=== PATIENT | female | born 1950 | race Caucasian/White ===

== ENCOUNTER 2020-12-14 14:50 | Outpatient (CLI) | payer MEDICARE, MEDICAID | END 2020-12-14 14:51 | disposition home or self-care (01) | LOC: CSHMRI 14:50 | PROVIDERS: ATTEND Emergency Medicine | DX: M75.102 Unspecified rotator cuff tear or rupture of left shoulder, not specified as traumatic (principal); M54.16 Radiculopathy, lumbar region; Z98.890 Other specified postprocedural states; M62.512 Muscle wasting and atrophy, not elsewhere classified, left shoulder; M19.012 Primary osteoarthritis, left shoulder; M71.812 Other specified bursopathies, left shoulder | CPT/HCPCS: 72148 ==

== ENCOUNTER 2021-12-08 11:56 | Emergency (ER) | payer MEDICARE, MEDICAID ==
[2021-12-08] MEDS ORDERED: Ketorolac Tromethamine 30 MG/ML VIAL ONE (12:34)
== END 2021-12-08 13:51 | disposition home or self-care (01) ==
LOC: CSHERS 11:56
DX: M25.512 Pain in left shoulder (principal); R07.89 Other chest pain; M25.522 Pain in left elbow; M25.532 Pain in left wrist; E11.9 Type 2 diabetes mellitus without complications; W19.XXXA Unspecified fall, initial encounter
CPT/HCPCS: 71045; 96372; J1885

== ENCOUNTER 2022-06-30 13:56 | Outpatient (CLI) | payer OTHER, MEDICAID ==
[2022-06-30 14:57] LABS: Hemoglobin 11.2 g/dL (12.0-15.5); Mean Corpuscular HGB CONC 31.5 g/dL (32.0-36.0); Mean Corpuscular Volume 82.4 fl (81.6-98.3); Mean Platelet Volume 9.6 fl (7.4-10.4); Platelet Count 339 10x3/uL (150-450); RBC Distribution Width 14.7 % (11.5-14.5); Red Blood Cell (RBC) Count 4.31 10x6/uL (3.90-5.03); White Blood Cell (WBC) Count 6.4 10x3/uL (3.5-10.5)
[2022-06-30 15:08] LABS: Anion Gap 13 mmol/L (10-20); BUN (Urea Nitrogen) 12 mg/dL (9.8-20.1); Calc. Creatinine Clearance 0 mL/min (70-130); Calcium 9.6 mg/dL (7.8-10.44); Carbon Dioxide 27 mmol/L (23-31); Chloride 100 mmol/L (98-107); Estimated GFR 72; Glucose 249 mg/dL (83-110); Potassium 4.4 mmol/L (3.5-5.1); Sodium 136 mmol/L (136-145)
== END 2022-06-30 13:57 | disposition home or self-care (01) ==
LOC: CSHLAB 13:56
PROVIDERS: ATTEND Orthopaedic Surgery
DX: Z01.818 Encounter for other preprocedural examination (principal)
CPT/HCPCS: 80048; 85027; 93005; 93010

== ENCOUNTER 2022-07-04 08:58 | Inpatient (IN) | payer OTHER, MEDICAID ==
[2022-07-04] MEDS ORDERED: Triamcinolone 40 MG/ML VIAL ONE (09:30)
[2022-07-04] MEDS ORDERED: EPINEPHrine 1 MG/ML AMP ONE (09:30)
[2022-07-04] MEDS ORDERED: Ketorolac Tromethamine 30 MG/ML VIAL ONE ×2 (09:30→11:10)
[2022-07-04] MEDS ORDERED: Bupivacaine PF 0.5% 30 ML VIAL ONE ×2 (09:31→14:02)
[2022-07-04] MEDS ORDERED: Insulin Regular 300 UNITS/3 ML VIAL ONE (11:03)
[2022-07-04] MEDS ORDERED: Lidocaine 1% PF 5 ML VIAL ONE (11:10)
[2022-07-04] MEDS ORDERED: Ondansetron PF 4 MG/2 ML Vial ONE (11:10)
[2022-07-04] MEDS ORDERED: Midazolam HCl 2 mg/2 ml Vial ONE (11:10)
[2022-07-04] MEDS ORDERED: Dexamethasone 4 mg/ml Vial ONE ×2 (11:10→11:37)
[2022-07-04] MEDS ORDERED: Fentanyl 100 MCG/2 ML VIAL ONE ×2 (11:10→14:28)
[2022-07-04] MEDS ORDERED: PROPOFOL 20 ML ONE (11:10)
[2022-07-04] MEDS ORDERED: Glycopyrrolate 0.2 MG/ML 5 ML SYRINGE ONE (11:12)
[2022-07-04] MEDS ORDERED: CEFAZOLIN 2 GM VIAL ONE (11:17)
[2022-07-04] MEDS ORDERED: Dextrose 50% Abboject 50 ML SYRINGE SLOW IVP PRN (15:11)
[2022-07-04] MEDS ORDERED: Acetaminophen 325 MG TAB PO PRN (15:11)
[2022-07-04] MEDS ORDERED: HumaLOG 300 UNITS/3 ML VIAL SC PRN (15:11)
[2022-07-04] MEDS ORDERED: Dextrose 5% in Water 1,000 ML IV PRN (15:11)
[2022-07-04] MEDS ORDERED: hydrALAZINE 20 MG/ML VIAL SLOW IVP PRN (15:11)
[2022-07-04] MEDS: HumaLOG 300 UNITS/3 ML VIAL SC PRN (16:59)
[2022-07-04] MEDS: Gabapentin 300 MG CAP PO SCH (21:59)
[2022-07-04] MEDS: Zolpidem Tartrate 5 MG TAB PO SCH (22:01)
[2022-07-04] MEDS: Montelukast Sodium 10 mg Tablet PO SCH (22:01)
[2022-07-04] MEDS ORDERED: Morphine 2 MG/ML VIAL SLOW IVP PRN (23:08)
[2022-07-04] MEDS: HYDROcodone/Acetaminophen 10/325 mg Tablet PO PRN (23:19)
[2022-07-05 05:00] LABS: #Monocytes 0.8 10x3/uL (0.0-1.1); #Neutrophils 12.6 10x3/uL (1.5-8.4); %Basophils 0.1 % (0.0-2.0); %Lymphocytes 6.8 % (18.0-47.0); %Monocytes 5.7 % (0.0-10.0); %Neutrophils 86.9 % (40.0-75.0); Hemoglobin 8.8 g/dL (12.0-15.5); Mean Corpuscular HGB CONC 32.6 g/dL (32.0-36.0); Mean Corpuscular Hemoglobin 26.2 pg (27.0-33.0); Mean Corpuscular Volume 80.4 fl (81.6-98.3); Mean Platelet Volume 10.1 fl (7.4-10.4); Platelet Count 310 10x3/uL (150-450); RBC Distribution Width 14.7 % (11.5-14.5); Red Blood Cell (RBC) Count 3.36 10x6/uL (3.90-5.03); White Blood Cell (WBC) Count 14.5 10x3/uL (3.5-10.5)
[2022-07-05 05:17] LABS: Anion Gap 10 mmol/L (10-20); BUN (Urea Nitrogen) 21 mg/dL (9.8-20.1); Calc. Creatinine Clearance 68 mL/min (70-130); Calcium 9.3 mg/dL (7.8-10.44); Carbon Dioxide 27 mmol/L (23-31); Chloride 98 mmol/L (98-107); Estimated GFR 61; Glucose 386 mg/dL (83-110); Potassium 4.9 mmol/L (3.5-5.1); Sodium 130 mmol/L (136-145)
[2022-07-05] MEDS ORDERED: Lantus 1000 UNITS/10 ML VIAL SC SCH ×3 (09:00→21:00)
[2022-07-05] MEDS ORDERED: FLU VACC QS2022-23(65YR UP)/PF 240 MCG/0.7 ML SYRINGE IM ONE (09:00)
[2022-07-05] MEDS: Nebivolol HCl 5 MG TAB PO SCH (09:05)
[2022-07-05] MEDS: DULoxetine 30 MG CAP PO SCH (09:05)
[2022-07-05] MEDS: Losartan 25 MG TAB PO SCH ×2 (09:06→11:50)
[2022-07-05] MEDS: HYDROcodone/Acetaminophen 10/325 mg Tablet PO PRN (09:27)
[2022-07-05] MEDS ORDERED: CEFAZOLIN 1 GM VIAL ONE (15:32)
[2022-07-05] MEDS ORDERED: Ketamine 50 MG/ML (10ML VIAL) ONE (15:32)
[2022-07-05] MEDS ORDERED: Albuterol Sulfate HFA (OR ONLY) ONE (15:33)
[2022-07-05] MEDS ORDERED: PROPOFOL 0 ML ONE (15:36)
[2022-07-05] MEDS ORDERED: Lidocaine 2% PF 5 ML VIAL ONE (15:36)
[2022-07-05] MEDS ORDERED: Fentanyl 100 MCG/2 ML VIAL ONE ×2 (15:36→17:59)
[2022-07-05] MEDS ORDERED: Rocuronium Bromide 10 MG/ML (10ML VIAL) ONE (15:36)
[2022-07-05] MEDS ORDERED: Glycopyrrolate 0.2 MG/ML 5 ML SYRINGE ONE (15:47)
[2022-07-05] MEDS ORDERED: Bupivacaine PF 0.5% 30 ML VIAL ONE (16:08)
[2022-07-05] MEDS ORDERED: Tranexamic Acid 1,000 MG/10 ML VIAL ONE (16:08)
[2022-07-05] MEDS ORDERED: SUGAMMADEX SODIUM 200 MG/2 ML VIAL ONE (16:08)
[2022-07-05] MEDS ORDERED: Dexamethasone 4 mg/ml Vial ONE (16:31)
[2022-07-05] MEDS ORDERED: ePHEDrine Sulfate 50 MG/10 ML VIAL ONE (16:35)
[2022-07-05] MEDS ORDERED: HYDROcodone/Acetaminophen 10/325 mg Tablet PO PRN (17:34)
[2022-07-05] MEDS ORDERED: TETANUS, DIPHTHERIA TOX,ADULT (TDVAX) 0.5 ML VIAL IM ONE (17:34)
[2022-07-05] MEDS ORDERED: Ondansetron PF 4 MG/2 ML Vial SLOW IVP PRN (17:34)
[2022-07-05] MEDS: Montelukast Sodium 10 mg Tablet PO SCH (21:04)
[2022-07-05] MEDS: Zolpidem Tartrate 5 MG TAB PO SCH (21:04)
[2022-07-05] MEDS: Morphine 4 MG/ML VIAL SLOW IVP PRN (21:06)
[2022-07-05] MEDS: Gabapentin 300 MG CAP PO SCH (21:22)
[2022-07-05] MEDS: Aspirin 81 mg Enteric Coated Tablet PO SCH (21:22)
[2022-07-05] MEDS: CEFAZOLIN 2 GM in Sodium Chloride 0.9% 100 ML IVPB SCH (21:43)
[2022-07-05 21:56] LABS: #Monocytes 0.8 10x3/uL (0.0-1.1); #Neutrophils 15.4 10x3/uL (1.5-8.4); %Basophils 0.1 % (0.0-2.0); %Lymphocytes 4.4 % (18.0-47.0); %Monocytes 4.9 % (0.0-10.0); %Neutrophils 90.1 % (40.0-75.0); Hemoglobin 9.2 g/dL (12.0-15.5); Mean Corpuscular HGB CONC 33.2 g/dL (32.0-36.0); Mean Corpuscular Hemoglobin 27.3 pg (27.0-33.0); Mean Corpuscular Volume 82.2 fl (81.6-98.3); Platelet Count 268 10x3/uL (150-450); RBC Distribution Width 14.9 % (11.5-14.5); Red Blood Cell (RBC) Count 3.37 10x6/uL (3.90-5.03); White Blood Cell (WBC) Count 17.1 10x3/uL (3.5-10.5)
[2022-07-05 22:44] LABS: Large Platelets SLIGHT; Platelet Clumps SLIGHT; Platelet Morphology Comment Appears Adequate; RBC Morphology Normal
[2022-07-06] MEDS: Ketorolac Tromethamine 30 MG/ML VIAL IVP SCH ×5 (03:19→23:48)
[2022-07-06] MEDS: HYDROcodone/Acetaminophen 10/325 mg Tablet PO PRN ×2 (03:20→16:30)
[2022-07-06] MEDS: CEFAZOLIN 2 GM in Sodium Chloride 0.9% 100 ML IVPB SCH (05:58)
[2022-07-06] MEDS: Morphine 4 MG/ML VIAL SLOW IVP PRN (05:58)
[2022-07-06 06:19] LABS: #Monocytes 1.1 10x3/uL (0.0-1.1); #Neutrophils 10.4 10x3/uL (1.5-8.4); %Basophils 0.2 % (0.0-2.0); %Monocytes 8.6 % (0.0-10.0); %Neutrophils 78.6 % (40.0-75.0); Hemoglobin 8.5 g/dL (12.0-15.5); Mean Corpuscular HGB CONC 32.9 g/dL (32.0-36.0); Mean Corpuscular Hemoglobin 27.2 pg (27.0-33.0); Mean Corpuscular Volume 82.7 fl (81.6-98.3); Mean Platelet Volume 10.3 fl (7.4-10.4); Platelet Count 287 10x3/uL (150-450); RBC Distribution Width 15.3 % (11.5-14.5); Red Blood Cell (RBC) Count 3.12 10x6/uL (3.90-5.03); White Blood Cell (WBC) Count 13.2 10x3/uL (3.5-10.5)
[2022-07-06] MEDS: HumaLOG 300 UNITS/3 ML VIAL SC PRN (06:30)
[2022-07-06 06:41] LABS: Anion Gap 16 mmol/L (10-20); BUN (Urea Nitrogen) 28 mg/dL (9.8-20.1); Calc. Creatinine Clearance 55 mL/min (70-130); Calcium 8.7 mg/dL (7.8-10.44); Carbon Dioxide 23 mmol/L (23-31); Chloride 102 mmol/L (98-107); Estimated GFR 48; Glucose 352 mg/dL (83-110); Potassium 5.4 mmol/L (3.5-5.1); Sodium 136 mmol/L (136-145)
[2022-07-06] MEDS: Nebivolol HCl 5 MG TAB PO SCH (09:44)
[2022-07-06] MEDS: Lactated Ringer's 1,000 ML IV SCH (09:45)
[2022-07-06] MEDS: DULoxetine 30 MG CAP PO SCH (09:45)
[2022-07-06] MEDS: Losartan 25 MG TAB PO SCH (09:45)
[2022-07-06] MEDS: Aspirin 81 mg Enteric Coated Tablet PO SCH ×2 (09:51→20:53)
[2022-07-06] MEDS: Lantus 1000 UNITS/10 ML VIAL SC SCH (10:06)
[2022-07-06] MEDS ORDERED: PATIENT'S HOME MEDICATION PO SCH (12:30)
[2022-07-06] MEDS: PATIENT'S HOME MEDICATION PO SCH (15:19)
[2022-07-06] MEDS ORDERED: HYDROcodone/Acetaminophen 5/325 mg Tablet PO PRN (17:20)
[2022-07-06] MEDS ORDERED: HYDROcodone/Acetaminophen 7.5/325 mg Tablet PO PRN (17:20)
[2022-07-06] MEDS ORDERED: Polyethylene Glycol 3350 17 GM Packet PO PRN (17:31)
[2022-07-06] MEDS: Gabapentin 300 MG CAP PO SCH (20:52)
[2022-07-06] MEDS: Montelukast Sodium 10 mg Tablet PO SCH (20:53)
[2022-07-06] MEDS ORDERED: Ketorolac Tromethamine 30 MG/ML VIAL IVP SCH (21:00)
[2022-07-07] MEDS: Morphine 4 MG/ML VIAL SLOW IVP PRN (02:39)
[2022-07-07] MEDS: Lactated Ringer's 1,000 ML IV SCH (02:43)
[2022-07-07 07:45] LABS: #Eosinphils 0.1 10x3/uL (0.0-0.5); #Monocytes 0.9 10x3/uL (0.0-1.1); #Neutrophils 5.4 10x3/uL (1.5-8.4); %Basophils 0.3 % (0.0-2.0); %Eosinophils 0.8 % (0.0-6.0); %Lymphocytes 27.7 % (18.0-47.0); %Monocytes 10.4 % (0.0-10.0); %Neutrophils 60.1 % (40.0-75.0); Hemoglobin 7.7 g/dL (12.0-15.5); Mean Corpuscular HGB CONC 32.5 g/dL (32.0-36.0); Mean Corpuscular Hemoglobin 27.4 pg (27.0-33.0); Mean Corpuscular Volume 84.3 fl (81.6-98.3); Mean Platelet Volume 9.9 fl (7.4-10.4); Platelet Count 251 10x3/uL (150-450); RBC Distribution Width 16.3 % (11.5-14.5); Red Blood Cell (RBC) Count 2.81 10x6/uL (3.90-5.03)
[2022-07-07 07:47] LABS: Anion Gap 11 mmol/L (10-20); BUN (Urea Nitrogen) 34 mg/dL (9.8-20.1); Calc. Creatinine Clearance 65 mL/min (70-130); Calcium 8.5 mg/dL (7.8-10.44); Carbon Dioxide 26 mmol/L (23-31); Chloride 101 mmol/L (98-107); Estimated GFR 58; Glucose 246 mg/dL (83-110); Potassium 4.4 mmol/L (3.5-5.1); Sodium 134 mmol/L (136-145)
[2022-07-07] MEDS: DULoxetine 30 MG CAP PO SCH (08:53)
[2022-07-07] MEDS: Aspirin 81 mg Enteric Coated Tablet PO SCH ×2 (08:53→21:01)
[2022-07-07] MEDS: Ferrous Sulfate 325 MG TAB PO SCH (08:53)
[2022-07-07] MEDS: Nebivolol HCl 5 MG TAB PO SCH (08:55)
[2022-07-07] MEDS: PATIENT'S HOME MEDICATION PO SCH (08:59)
[2022-07-07] MEDS: Lantus 1000 UNITS/10 ML VIAL SC SCH ×2 (09:13→21:05)
[2022-07-07] MEDS: HumaLOG 300 UNITS/3 ML VIAL SC PRN ×2 (09:14→17:51)
[2022-07-07] MEDS ORDERED: HYDROcodone/Acetaminophen 7.5/325 mg Tablet PO PRN (13:55)
[2022-07-07] MEDS: HYDROcodone/Acetaminophen 10/325 mg Tablet PO PRN (21:01)
[2022-07-07] MEDS: Gabapentin 300 MG CAP PO SCH (21:03)
[2022-07-07] MEDS: Montelukast Sodium 10 mg Tablet PO SCH (21:03)
[2022-07-08] MEDS: HYDROcodone/Acetaminophen 10/325 mg Tablet PO PRN ×5 (01:08→21:22)
[2022-07-08 05:13] LABS: #Eosinphils 0.1 10x3/uL (0.0-0.5); #Neutrophils 5.3 10x3/uL (1.5-8.4); %Basophils 0.4 % (0.0-2.0); %Eosinophils 1.5 % (0.0-6.0); %Neutrophils 55.7 % (40.0-75.0); Hemoglobin 7.9 g/dL (12.0-15.5); Mean Corpuscular HGB CONC 32.2 g/dL (32.0-36.0); Mean Corpuscular Volume 83.6 fl (81.6-98.3); Mean Platelet Volume 9.9 fl (7.4-10.4); Platelet Count 281 10x3/uL (150-450); RBC Distribution Width 16.4 % (11.5-14.5); Red Blood Cell (RBC) Count 2.93 10x6/uL (3.90-5.03); White Blood Cell (WBC) Count 9.6 10x3/uL (3.5-10.5)
[2022-07-08 05:16] LABS: Anion Gap 11 mmol/L (10-20); BUN (Urea Nitrogen) 18 mg/dL (9.8-20.1); Calc. Creatinine Clearance 101 mL/min (70-130); Calcium 8.3 mg/dL (7.8-10.44); Carbon Dioxide 23 mmol/L (23-31); Chloride 103 mmol/L (98-107); Estimated GFR 93; Glucose 166 mg/dL (83-110); Potassium 4.4 mmol/L (3.5-5.1); Sodium 133 mmol/L (136-145)
[2022-07-08] MEDS: HumaLOG 300 UNITS/3 ML VIAL SC PRN (06:25)
[2022-07-08] MEDS: PATIENT'S HOME MEDICATION PO SCH (08:34)
[2022-07-08] MEDS: Aspirin 81 mg Enteric Coated Tablet PO SCH ×2 (08:34→21:21)
[2022-07-08] MEDS: Lantus 1000 UNITS/10 ML VIAL SC SCH ×2 (08:37→21:22)
[2022-07-08] MEDS: Ferrous Sulfate 325 MG TAB PO SCH (08:37)
[2022-07-08] MEDS: DULoxetine 30 MG CAP PO SCH (08:38)
[2022-07-08] MEDS ORDERED: Nebivolol HCl 5 MG TAB PO SCH (12:00)
[2022-07-08] MEDS: Gabapentin 100 MG CAP PO SCH ×2 (12:12→16:32)
[2022-07-08] MEDS: Morphine 4 MG/ML VIAL SLOW IVP PRN (12:17)
[2022-07-08] MEDS: Nebivolol HCl 5 MG TAB PO SCH (16:16)
[2022-07-08] MEDS: Gabapentin 300 MG CAP PO SCH (21:21)
[2022-07-08] MEDS: Montelukast Sodium 10 mg Tablet PO SCH (21:21)
[2022-07-09] MEDS: HYDROcodone/Acetaminophen 10/325 mg Tablet PO PRN ×2 (06:14→20:52)
[2022-07-09 06:52] LABS: #Eosinphils 0.2 10x3/uL (0.0-0.5); #Neutrophils 6.1 10x3/uL (1.5-8.4); %Basophils 0.3 % (0.0-2.0); %Lymphocytes 24.2 % (18.0-47.0); %Monocytes 10.4 % (0.0-10.0); %Neutrophils 62.7 % (40.0-75.0); Hemoglobin 8.4 g/dL (12.0-15.5); Mean Corpuscular HGB CONC 31.8 g/dL (32.0-36.0); Mean Corpuscular Hemoglobin 27.2 pg (27.0-33.0); Mean Corpuscular Volume 85.4 fl (81.6-98.3); Mean Platelet Volume 9.9 fl (7.4-10.4); Platelet Count 323 10x3/uL (150-450); Red Blood Cell (RBC) Count 3.09 10x6/uL (3.90-5.03); White Blood Cell (WBC) Count 9.6 10x3/uL (3.5-10.5)
[2022-07-09 07:02] LABS: Anion Gap 14 mmol/L (10-20); BUN (Urea Nitrogen) 11 mg/dL (9.8-20.1); Calc. Creatinine Clearance 107 mL/min (70-130); Calcium 8.7 mg/dL (7.8-10.44); Carbon Dioxide 25 mmol/L (23-31); Chloride 102 mmol/L (98-107); Estimated GFR 92; Glucose 122 mg/dL (83-110); Potassium 5.3 mmol/L (3.5-5.1); Sodium 136 mmol/L (136-145)
[2022-07-09] MEDS: Lantus 1000 UNITS/10 ML VIAL SC SCH ×2 (11:52→21:05)
[2022-07-09] MEDS: Nebivolol HCl 5 MG TAB PO SCH (11:53)
[2022-07-09] MEDS: Gabapentin 100 MG CAP PO SCH ×2 (11:54→18:14)
[2022-07-09] MEDS: Ferrous Sulfate 325 MG TAB PO SCH (11:54)
[2022-07-09] MEDS: DULoxetine 30 MG CAP PO SCH (11:54)
[2022-07-09] MEDS: Aspirin 81 mg Enteric Coated Tablet PO SCH (11:55)
[2022-07-09] MEDS: PATIENT'S HOME MEDICATION PO SCH (11:56)
[2022-07-09] MEDS ORDERED: Moisturizing Cream (Eucerin) 113 GM JAR TOP PRN (13:43)
[2022-07-09] MEDS ORDERED: Artificial Tear Sol 15 ML BOT EA EYE PRN (13:43)
[2022-07-09] MEDS ORDERED: Benzonatate 100 MG CAP PO PRN (13:43)
[2022-07-09] MEDS ORDERED: Sodium Chloride 0.65% Nasal 44 ML BOT EA NARE PRN (13:43)
[2022-07-09 15:00] LABS: Anion Gap 10 mmol/L (10-20); BUN (Urea Nitrogen) 10 mg/dL (9.8-20.1); Calc. Creatinine Clearance 107 mL/min (70-130); Calcium 8.7 mg/dL (7.8-10.44); Carbon Dioxide 29 mmol/L (23-31); Chloride 100 mmol/L (98-107); Estimated GFR 92; Glucose 122 mg/dL (83-110); Sodium 134 mmol/L (136-145)
[2022-07-09] MEDS: Acetaminophen 325 MG TAB PO SCH ×2 (18:14→20:52)
[2022-07-09] MEDS: Nystatin 500,000 UNITS/5 ML UDCUP SSW SCH ×2 (18:14→20:53)
[2022-07-09] MEDS: Cepastat Lozenges 1 LOZ PO PRN (18:15)
[2022-07-09] MEDS: Gabapentin 300 MG CAP PO SCH (20:53)
[2022-07-09] MEDS: Famotidine 20 MG TAB PO SCH (20:53)
[2022-07-09] MEDS: Montelukast Sodium 10 mg Tablet PO SCH (20:53)
[2022-07-09] MEDS: Enoxaparin Sodium 40 MG/0.4 ML SYRINGE SC SCH (20:54)
[2022-07-10] MEDS: Acetaminophen 325 MG TAB PO SCH ×2 (00:54→06:42)
[2022-07-10] MEDS: Cepastat Lozenges 1 LOZ PO PRN ×2 (03:02→23:10)
[2022-07-10] MEDS: HYDROcodone/Acetaminophen 10/325 mg Tablet PO PRN ×2 (04:44→09:28)
[2022-07-10 06:37] LABS: Anion Gap 12 mmol/L (10-20); BUN (Urea Nitrogen) 9 mg/dL (9.8-20.1); Calc. Creatinine Clearance 107 mL/min (70-130); Calcium 8.9 mg/dL (7.8-10.44); Carbon Dioxide 29 mmol/L (23-31); Chloride 101 mmol/L (98-107); Estimated GFR 92; Glucose 99 mg/dL (83-110); Potassium 5.1 mmol/L (3.5-5.1); Sodium 137 mmol/L (136-145)
[2022-07-10] MEDS: Nebivolol HCl 5 MG TAB PO SCH (09:27)
[2022-07-10] MEDS: Nystatin 500,000 UNITS/5 ML UDCUP SSW SCH ×4 (09:27→21:09)
[2022-07-10] MEDS: Famotidine 20 MG TAB PO SCH ×2 (09:27→21:09)
[2022-07-10] MEDS: Gabapentin 100 MG CAP PO SCH ×2 (09:27→13:02)
[2022-07-10] MEDS: Lantus 1000 UNITS/10 ML VIAL SC SCH (09:27)
[2022-07-10] MEDS: DULoxetine 30 MG CAP PO SCH (09:27)
[2022-07-10] MEDS: PATIENT'S HOME MEDICATION PO SCH (09:27)
[2022-07-10] MEDS: Ferrous Sulfate 325 MG TAB PO SCH (09:27)
[2022-07-10] MEDS ORDERED: HYDROcodone/Acetaminophen 7.5/325 mg Tablet PO PRN (10:15)
[2022-07-10] MEDS ORDERED: Naloxone HCl 0.4 mg/ml Vial IV PRN (13:34)
[2022-07-10] MEDS: Enoxaparin Sodium 40 MG/0.4 ML SYRINGE SC SCH (21:08)
[2022-07-10] MEDS: Gabapentin 300 MG CAP PO SCH (21:09)
[2022-07-10] MEDS: Montelukast Sodium 10 mg Tablet PO SCH (21:09)
[2022-07-11 07:22] LABS: Anion Gap 14 mmol/L (10-20); BUN (Urea Nitrogen) 9 mg/dL (9.8-20.1); Calc. Creatinine Clearance 102 mL/min (70-130); Calcium 8.6 mg/dL (7.8-10.44); Carbon Dioxide 23 mmol/L (23-31); Chloride 101 mmol/L (98-107); Estimated GFR 93; Glucose 93 mg/dL (83-110); Potassium 4.4 mmol/L (3.5-5.1); Sodium 134 mmol/L (136-145)
[2022-07-11] MEDS ORDERED: Lantus 1000 UNITS/10 ML VIAL SC SCH (09:00)
[2022-07-11 09:03] LABS: #Eosinphils 0.1 10x3/uL (0.0-0.5); #Monocytes 0.8 10x3/uL (0.0-1.1); #Neutrophils 5.3 10x3/uL (1.5-8.4); %Basophils 0.5 % (0.0-2.0); %Eosinophils 1.5 % (0.0-6.0); %Lymphocytes 23.1 % (18.0-47.0); %Neutrophils 64.4 % (40.0-75.0); Hemoglobin 8.8 g/dL (12.0-15.5); Mean Corpuscular HGB CONC 32.2 g/dL (32.0-36.0); Mean Corpuscular Hemoglobin 27.5 pg (27.0-33.0); Mean Corpuscular Volume 85.3 fl (81.6-98.3); Mean Platelet Volume 9.4 fl (7.4-10.4); Platelet Count 331 10x3/uL (150-450); RBC Distribution Width 17.7 % (11.5-14.5); White Blood Cell (WBC) Count 8.2 10x3/uL (3.5-10.5)
[2022-07-11] MEDS: Famotidine 20 MG TAB PO SCH (11:47)
[2022-07-11] MEDS: Gabapentin 100 MG CAP PO SCH ×2 (11:47→11:48)
[2022-07-11] MEDS: DULoxetine 30 MG CAP PO SCH (11:47)
[2022-07-11] MEDS: Ferrous Sulfate 325 MG TAB PO SCH (11:47)
[2022-07-11] MEDS: Nebivolol HCl 5 MG TAB PO SCH (11:48)
[2022-07-11] MEDS: PATIENT'S HOME MEDICATION PO SCH (11:48)
[2022-07-11] MEDS: Nystatin 500,000 UNITS/5 ML UDCUP SSW SCH ×2 (11:48)
[2022-07-11 12:51] VITALS: BP 176/73; TEMP 98.2
[2022-07-11 14:57] VITALS: BMI 35.5
== END 2022-07-11 15:41 | DRG 481 ==
LOC: CSHSDC 08:58 → CSHTELE 19:50 → OBSVTOIN 07-05 17:34
PROVIDERS: ADMIT Internal Medicine; ATTEND Family Medicine
PROC: 0SNCXZZ Release Right Knee Joint, External Approach (ICD-10-PCS; principal; 2022-07-04)
PROC: 3E033XZ Introduction of Vasopressor into Peripheral Vein, Percutaneous Approach (ICD-10-PCS; 2022-07-04)
PROC: 0QSB06Z Reposition Right Lower Femur with Intramedullary Internal Fixation Device, Open Approach (ICD-10-PCS; 2022-07-05)
PROC: 30233N1 Transfusion of Nonautologous Red Blood Cells into Peripheral Vein, Percutaneous Approach (ICD-10-PCS; 2022-07-05)
DX: S72.451A Displaced supracondylar fracture without intracondylar extension of lower end of right femur, initial encounter for closed fracture (principal); N17.9 Acute kidney failure, unspecified; D64.9 Anemia, unspecified; M24.661 Ankylosis, right knee; E11.9 Type 2 diabetes mellitus without complications; J45.909 Unspecified asthma, uncomplicated; I10 Essential (primary) hypertension; W19.XXXA Unspecified fall, initial encounter; E87.5 Hyperkalemia; Z96.651 Presence of right artificial knee joint; Z88.2 Allergy status to sulfonamides; Z98.890 Other specified postprocedural states; Z88.6 Allergy status to analgesic agent; Z88.8 Allergy status to other drugs, medicaments and biological substances; Z91.041 Radiographic dye allergy status; Z79.899 Other long term (current) drug therapy; Z79.4 Long term (current) use of insulin; Z82.49 Family history of ischemic heart disease and other diseases of the circulatory system; Z98.51 Tubal ligation status; Z80.3 Family history of malignant neoplasm of breast; Z20.822 Contact with and (suspected) exposure to COVID-19
CPT/HCPCS: 36415; 36416; 36430; 80048; 85025; 86850; 86900; 86901; 87811; 94760; 96374; 97139; C1713; G0378; J0171; J0360; J0690; J1100; J1650; J1815; J1885; J2001; J2250; J2270; J2405; J2704; J3010; J3301; J3490; J7120; P9016; S0020